=== PATIENT | female | born 1980 | race Caucasian/White ===

== ENCOUNTER 2017-07-04 14:58 | Outpatient (CLI) | payer OTHER ==
[~2017-07-04] VITALS: Ht 162.6 cm; Wt 62.0 kg
[2017-07-04 15:57] LABS: MICROSCOPIC INDICATED
== END 2017-07-04 17:08 | disposition home or self-care (01) ==
LOC: LDOP 14:58
PROVIDERS: ATTEND Obstetrics & Gynecology
DX: O26.893 Other specified pregnancy related conditions, third trimester (principal); R10.9 Unspecified abdominal pain; Z3A.36 36 weeks gestation of pregnancy
CPT/HCPCS: 36415; 59025; 81001; 82731; 87081; 99201; G0463

== ENCOUNTER 2017-07-13 18:02 | Inpatient (IN) | payer OTHER ==
[~2017-07-13] VITALS: Ht 160 cm; Wt 61.3 kg
[2017-07-13 18:25] VITALS: BP 108/58
[2017-07-13] MEDS ORDERED: OXYTOCIN 30U/ 0.9% NaCL 500ML 500 ML IV ONE (18:54)
[2017-07-13] MEDS ORDERED: D5%-LACTATED RINGERS 1,000 ML IV SCH (18:54)
[2017-07-13] MEDS ORDERED: OXYTOCIN 30U/ 0.9% NaCL 500ML 500 ML ONE (18:59)
[2017-07-13] MEDS ORDERED: MISOPROSTOL 200 MCG TABLET ONE (18:59)
[2017-07-13] MEDS ORDERED: LIDOCAINE 1%, 20ML ONE (18:59)
[2017-07-13] MEDS ORDERED: NEWBORN KIT ONE (18:59)
[2017-07-13] MEDS ORDERED: FENTANYL PF 100 MCG/2ML IV PRN (19:00)
[2017-07-13] MEDS ORDERED: PENICILLIN GK 5,000,000 UNITS in DEXTROSE 5% 100 ML IVPB ONE (19:00)
[2017-07-13] MEDS ORDERED: SODIUM CITRATE/CITRIC ACID 30 ML UDC PO PRN (19:00)
[2017-07-13] MEDS ORDERED: FENTANYL PF 100 MCG/2ML IVPush PRN (19:00)
[2017-07-13] MEDS ORDERED: TERBUTALINE 1 MG/ML, 1ML IVPush PRN (19:00)
[2017-07-13] MEDS ORDERED: ONDANSETRON 2MG/ML, 2ML IVPush PRN ×2 (19:00→23:30)
[2017-07-13] MEDS ORDERED: METOCLOPRAMIDE 5 MG/ML, 2ML IVPush PRN (19:00)
[2017-07-13 19:14] LABS: BASOPHILS # (AUTO) 0.04 x10^3/uL (0-0.1); BASOPHILS % (AUTO) 0 % (0-1); EOSINOPHILS % (AUTO) 2 % (1-7); LYMPHOCYTES # (AUTO) 2.09 x10^3/uL (1-3.4); LYMPHOCYTES % (AUTO) 15 % (22-44); MD NO; MEAN CORPUSCULAR HEMOGLOBIN 28.9 pg (27.0-34.8); MEAN CORPUSCULAR HGB CONC 33.3 g/dL (32.4-35.8); MEAN CORPUSCULAR VOLUME 86.7 fL (80-100); MEAN PLATELET VOLUME 9.6 fL (7.4-10.4); MONOCYTES # (AUTO) 1.09 x10^3/uL (0.2-0.8); MONOCYTES % (AUTO) 8 % (2-9); NEUTROPHILS % (AUTO) 74 % (42-75); PLATELET COUNT 322 x10^3/uL (130-400); RED BLOOD COUNT 4.12 x10^6/uL (3.82-5.3); RED CELL DISTRIBUTION WIDTH 13.3 % (9.6-15.2)
[2017-07-13] MEDS: LACTATED RINGERS 1,000 ML IV SCH ×2 (19:47→21:46)
[2017-07-13] MEDS ORDERED: FENTANYL/BUPIV./NS/PF 250 ML EPIDCONT ONE (22:24)
[2017-07-13] MEDS ORDERED: PENICILLIN GK 2,500,000 UNITS in DEXTROSE 5% 100 ML IVPB SCH (23:00)
[2017-07-13] MEDS ORDERED: LACTATED RINGERS 1,000 ML IV SCH (23:02)
[2017-07-13] MEDS ORDERED: FENTANYL/BUPIV./NS/PF 250 ML EPIDCONT SCH (23:02)
[2017-07-13] MEDS ORDERED: LACTATED RINGERS 1,000 ML IVBOLUS PRN (23:30)
[2017-07-13] MEDS ORDERED: EPHEDRINE 50 MG/ML, 1ML IVPush PRN (23:30)
[2017-07-13] MEDS ORDERED: NALOXONE 0.4 MG/ML, 1ML IVPush PRN (23:30)
[2017-07-14] VITALS (7 sets, daily range): BP systolic 94–104; BP diastolic 53–64
[2017-07-14] MEDS: OXYTOCIN 30U/ 0.9% NaCL 500ML 500 ML IV SCH ×7 (00:13→20:13)
[2017-07-14] MEDS ORDERED: ONDANSETRON 2MG/ML, 2ML IV PRN (00:30)
[2017-07-14] MEDS ORDERED: ACETAMINOPHEN 325 MG TABLET PO PRN (00:30)
[2017-07-14] MEDS ORDERED: HYDROcodone/APAP 5/325 TABLET PO PRN ×2 (00:30)
[2017-07-14] MEDS ORDERED: BISACODYL 10 MG SUPP PR PRN (00:30)
[2017-07-14] MEDS ORDERED: CALCIUM CARBONATE 500 MG TAB.CHEW PO PRN (00:30)
[2017-07-14] MEDS ORDERED: METHYLERGONOVINE 0.2 MG/ML IM PRN (00:30)
[2017-07-14] MEDS ORDERED: MISOPROSTOL 200 MCG TABLET PR PRN (00:30)
[2017-07-14] MEDS ORDERED: OXYTOCIN 30U/ 0.9% NaCL 500ML 500 ML ONE (00:39)
[2017-07-14] MEDS ORDERED: PRENATAL VIT/IRON/FA 1 EACH TABLET ONE (07:14)
[2017-07-14] MEDS: DOCUSATE 100 MG CAPSULE PO PRN ×2 (07:35→19:47)
[2017-07-14] MEDS: PRENATAL VIT/IRON/FA 1 EACH TABLET PO SCH (07:35)
[2017-07-14] MEDS: ACETAMINOPHEN 325 MG TABLET PO PRN ×2 (07:35→15:46)
[2017-07-14 08:57] LABS: MEAN CORPUSCULAR HEMOGLOBIN 28.6 pg (27.0-34.8); MEAN CORPUSCULAR HGB CONC 33.5 g/dL (32.4-35.8); MEAN CORPUSCULAR VOLUME 85.6 fL (80-100); MEAN PLATELET VOLUME 10.4 fL (7.4-10.4); PLATELET COUNT 272 x10^3/uL (130-400); RED BLOOD COUNT 3.97 x10^6/uL (3.82-5.3); RED CELL DISTRIBUTION WIDTH 13.1 % (9.6-15.2)
[2017-07-14 09:29] LABS: BASOPHILS # (AUTO) 0.07 x10^3/uL (0-0.1); BASOPHILS % (AUTO) 0 % (0-1); EOSINOPHILS # (AUTO) 0.09 x10^3/uL (0-0.4); EOSINOPHILS % (AUTO) 1 % (1-7); LYMPHOCYTES # (AUTO) 1.59 x10^3/uL (1-3.4); LYMPHOCYTES % (AUTO) 8 % (22-44); MD SCAN; MONOCYTES # (AUTO) 0.99 x10^3/uL (0.2-0.8); MONOCYTES % (AUTO) 5 % (2-9); NEUTROPHILS # (AUTO) 16.11 x10^3/uL (1.8-6.8); NEUTROPHILS % (AUTO) 86 % (42-75)
[2017-07-14] MEDS: IBUPROFEN 600 MG TABLET PO PRN ×2 (12:43→19:47)
[2017-07-14] MEDS ORDERED: DIPH,PERTUSS(ACELL),TET VAC/PF NC IM-VACC ONE (15:30)
[2017-07-14] MEDS ORDERED: FLU VACC QS2017-18 (36MOS+) UP/PF 0.5 ML IM-VACC ONE (19:30)
[2017-07-15] MEDS: OXYTOCIN 30U/ 0.9% NaCL 500ML 500 ML IV SCH ×2 (06:13→15:42)
[2017-07-15] MEDS: PRENATAL VIT/IRON/FA 1 EACH TABLET PO SCH (09:11)
[2017-07-15] MEDS: IBUPROFEN 600 MG TABLET PO PRN ×2 (09:11→15:53)
[2017-07-15 09:22] VITALS: BP 99/64
[2017-07-15] MEDS ORDERED: IBUP-1222 PO (13:20)
== END 2017-07-15 18:00 | disposition home or self-care (01) | DRG 775 ==
LOC: LDOP 18:02 → LDIP 18:54 → 2NW 07-14 02:46
PROVIDERS: ADMIT Obstetrics & Gynecology; ATTEND Obstetrics & Gynecology
PROC: 10E0XZZ Delivery of Products of Conception, External Approach (ICD-10-PCS; principal; 2017-07-13)
DX: O42.92 Full-term premature rupture of membranes, unspecified as to length of time between rupture and onset of labor (principal); F17.210 Nicotine dependence, cigarettes, uncomplicated; Z37.0 Single live birth; O99.334 Smoking (tobacco) complicating childbirth; O99.824 Streptococcus B carrier state complicating childbirth; Z3A.37 37 weeks gestation of pregnancy; Z23 Encounter for immunization
CPT/HCPCS: 36415; 85025; 86850; 86900; 90686; 90715; J2540; J2590; J3010; J7120